=== PATIENT | female | born 1960 | race African-American/Black ===

== ENCOUNTER 2022-12-08 07:52 | Emergency (ER) | payer OTHER ==
[2022-12-08 08:01] VITALS: BP 177/79; PULSE 97; RESP 16; TEMP 97.8; BMI 27.9
[2022-12-08] MEDS ORDERED: KETOROLAC TROMETHAMINE 15 MG/ML VIAL IM ONE (08:07)
[2022-12-08] MEDS ORDERED: ACETAMINOPHEN 325 MG TABLET (FP) PO ONE (08:07)
== END 2022-12-08 08:58 | disposition home or self-care (01) ==
LOC: JERFT 07:52
DX: M25.512 Pain in left shoulder (principal)
CPT/HCPCS: 73030-TC-LT-FY; 93005; 93010; 99284-25